=== PATIENT | female | born 1965 | race Hispanic/Latino ===

== ENCOUNTER 2020-09-06 09:24 | Emergency (ER) | payer SELFPAY ==
[~2020-09-06] VITALS: Ht 157.5 cm; Wt 97.5 kg
[2020-09-06 09:26] VITALS: BP 133/73
[2020-09-06 11:38] LABS: BASOPHILS % (AUTO) 0.4 % (0.0-5.0); EOSINOPHILS % (AUTO) 1.3 % (0.0-8.0); LYMPHOCYTES % (AUTO) 17.9 % (21.0-51.0); MEAN CORPUSCULAR HEMOGLOBIN 31.2 pg (27.0-33.0); MEAN CORPUSCULAR HGB CONC 32.3 g/dL (32.0-36.0); MEAN CORPUSCULAR VOLUME 96.9 fL (79-99); MONOCYTES % (AUTO) 3.9 % (3.0-13.0); NEUTROPHILS % (AUTO) 75.7 % (40.0-77.0); PLATELET COUNT (AUTO) 172 K/uL (130-400); RED BLOOD CELL COUNT(AUTO) 4.13 MIL/uL (4.00-5.50); RED CELL DISTRIBUTION WIDTH 13.1 % (11.0-15.5)
[2020-09-06 11:56] LABS: BILIRUBIN,TOTAL 0.4 mg/dL (0.2-1.0); CREATININE 0.9 mg/dL (0.5-1.5); POTASSIUM 4.2 mmol/L (3.5-5.1); TOTAL PROTEIN, SERUM 8.5 g/dL (6.0-8.3)
[2020-09-06 12:14] LABS: APPEARANCE,URINE Clear (CLEAR); BILIRUBIN,URINE Negative (NEGATIVE); COLOR,URINE Yellow (YELLOW); GLUCOSE, URINE (UA) TRACE mg/dL (NEGATIVE); KETONES,URINE Negative (NEGATIVE); LEUKOCYTE ESTERASE ,URINE Negative (NEGATIVE); NITRATE,URINE Negative (NEGATIVE); OCCULT BLOOD,URINE Negative (NEGATIVE); PROTEIN,URINE POS 1+ mg/dL (NEGATIVE); UROBILINOGEN,URINE 0.2 mg/dL (0.2-1.0)
[2020-09-06 12:34] LABS: BACTERIA,URINE Rare /HPF (None Seen); RBC,URINE 0-1 /HPF (0-1); SQUAMOUS EPITHELIAL CELL,UR Rare /HPF (0-2); WBC,URINE 0-1 /HPF (0-1)
[2020-09-06] MEDS ORDERED: LACTATED RINGERS 1000ML 1,000 ML IV ONE (12:45)
[2020-09-06] MEDS ORDERED: ONDANSETRON 4MG INJ IVP ONE (12:45)
[2020-09-06] MEDS ORDERED: MECL-160 PO (13:33)
[2020-09-06] MEDS ORDERED: ONDA4TAB4 PO (13:33)
[2020-09-06 13:50] VITALS: BP 132/76
== END 2020-09-06 13:55 | disposition home or self-care (01) ==
LOC: EDH 09:24
DX: H81.10 Benign paroxysmal vertigo, unspecified ear (principal); R11.2 Nausea with vomiting, unspecified
CPT/HCPCS: 36415; 80053; 81001; 82150; 83690; 84484; 85025; 93005; 96361; 96374; 99284; J2405; J7120

== ENCOUNTER → 2022-02-06 | Emergency (ER) | payer BC ==
[~2022-02-06] VITALS: Ht 157.5 cm; Wt 105.7 kg
[~2022-02-06] MED LIST: DIPH1TAB PO; DIPHENOXYLATE HCL/ATROPINE 2.5/0.025 MG TAB PO ONE; HYDR25SU38 RC; MECL-160 PO; ONDA4TAB4 PO
[2022-02-06 22:08] VITALS: BP 120/60
[2022-02-06 22:09] LABS: BASOPHILS % (AUTO) 0.2 % (0.0-5.0); EOSINOPHILS % (AUTO) 0.2 % (0.0-8.0); HEMATOCRIT 38.9 % (36-48); LYMPHOCYTES % (AUTO) 40.3 % (21.0-51.0); MEAN CORPUSCULAR HEMOGLOBIN 31.4 pg (27.0-33.0); MEAN CORPUSCULAR HGB CONC 32.6 g/dL (32.0-36.0); MONOCYTES % (AUTO) 6.6 % (3.0-13.0); NEUTROPHILS % (AUTO) 52.4 % (40.0-77.0); PLATELET COUNT (AUTO) 170 K/uL (130-400); RED BLOOD CELL COUNT(AUTO) 4.05 MIL/uL (4.00-5.50); RED CELL DISTRIBUTION WIDTH 13.1 % (11.0-15.5); WHITE BLOOD COUNT (AUTO) 6.6 K/uL (4.8-10.8)
[2022-02-06 22:17] LABS: CREATININE 1.5 mg/dL (0.5-1.5); POTASSIUM 4.6 mmol/L (3.5-5.1)
[2022-02-06 22:23] LABS: ALBUMIN 4.1 g/dL (3.5-5.0); TOTAL PROTEIN, SERUM 8.8 g/dL (6.0-8.3)
== END | disposition home or self-care (01) ==
LOC: EDH 19:49
DX: R19.7 Diarrhea, unspecified (principal); K92.1 Melena; F41.9 Anxiety disorder, unspecified; F32.A Depression, unspecified; E11.40 Type 2 diabetes mellitus with diabetic neuropathy, unspecified; E78.00 Pure hypercholesterolemia, unspecified; I10 Essential (primary) hypertension; Z90.89 Acquired absence of other organs; Z88.1 Allergy status to other antibiotic agents; Z91.040 Latex allergy status; Z79.899 Other long term (current) drug therapy; Z90.49 Acquired absence of other specified parts of digestive tract
CPT/HCPCS: 36415; 80053; 83690; 85025

== ENCOUNTER 2022-12-11 14:03 | Emergency (ER) | payer BC ==
[~2022-12-11] VITALS: Ht 154.9 cm; Wt 106.6 kg
[~2022-12-11 14:03] MED LIST changes: -DIPHENOXYLATE HCL/ATROPINE 2.5/0.025 MG TAB PO ONE; -MECL-160 PO; +MECL-302 PO
[2022-12-11] MEDS ORDERED: ONDANSETRON 4MG INJ IVP ONE (16:30)
[2022-12-11] MEDS ORDERED: MORPHINE 4 MG SYG IVP ONE (16:30)
[2022-12-11 18:11] LABS: BASOPHILS # (AUTO) 0.03 K/uL (0.00-0.20); BASOPHILS % (AUTO) 0.4 % (0.0-5.0); EOSINOPHILS # (AUTO) 0.11 K/uL (0.00-0.70); EOSINOPHILS % (AUTO) 1.3 % (0.0-8.0); HEMATOCRIT 39.2 % (36-48); IMMATURE GRANULOCYTE ABSOLUTE 0.03 K/uL (0-1); LYMPHOCYTES # (AUTO) 2.5 K/uL (1.0-4.8); LYMPHOCYTES % (AUTO) 29.1 % (21.0-51.0); MEAN CORPUSCULAR HEMOGLOBIN 31.5 pg (27.0-33.0); MEAN CORPUSCULAR HGB CONC 33.9 g/dL (32.0-36.0); MEAN CORPUSCULAR VOLUME 92.9 fL (79-99); MONOCYTES # (AUTO) 0.5 K/uL (0.1-1.0); MONOCYTES % (AUTO) 5.4 % (3.0-13.0); NEUTROPHILS # (AUTO) 5.4 K/uL (1.8-7.7); NEUTROPHILS % (AUTO) 63.4 % (40.0-77.0); PLATELET COUNT (AUTO) 230 K/uL (130-400); RED BLOOD CELL COUNT(AUTO) 4.22 MIL/uL (4.00-5.50); WHITE BLOOD COUNT (AUTO) 8.5 K/uL (4.8-10.8)
[2022-12-11 18:18] LABS: CREATININE 0.9 mg/dL (0.5-1.5); POTASSIUM 3.9 mmol/L (3.5-5.1)
[2022-12-11 18:24] LABS: ALBUMIN 3.9 g/dL (3.5-5.0); BILIRUBIN,TOTAL 0.7 mg/dL (0.2-1.0); TOTAL PROTEIN, SERUM 8.3 g/dL (6.0-8.3)
[2022-12-11] MEDS ORDERED: IOHEXOL 350 MG/ML 100ML INFUS..BTL IV ONE (18:55)
[2022-12-11] MEDS ORDERED: ACET-2079 PO (20:11)
[2022-12-11 20:25] VITALS: BP 128/68; PULSE 81; RESP 16; O2SAT 96
== END 2022-12-11 20:41 | disposition home or self-care (01) ==
LOC: EDH 14:03
DX: R10.12 Left upper quadrant pain (principal); R07.81 Pleurodynia; F41.9 Anxiety disorder, unspecified; E11.9 Type 2 diabetes mellitus without complications; E78.00 Pure hypercholesterolemia, unspecified; I10 Essential (primary) hypertension; F32.A Depression, unspecified; Z88.1 Allergy status to other antibiotic agents; Z90.49 Acquired absence of other specified parts of digestive tract; V89.2XXA Person injured in unspecified motor-vehicle accident, traffic, initial encounter; Y93.89 Activity, other specified; Y92.89 Other specified places as the place of occurrence of the external cause; Y99.8 Other external cause status
CPT/HCPCS: 99285; 71260; 96374; 96375; 80053; 85025; 36415; 74177; J2405; J2270; Q9967